=== PATIENT | male | born 1960 | race Caucasian/White ===

== ENCOUNTER 2019-01-11 18:04 | Emergency (ER) | payer BC, SELFPAY ==
[2019-01-11 18:06] VITALS: BP 149/94; PULSE 95; RESP 16; TEMP 36.8; O2SAT 98; BMI 21.2
[2019-01-11 20:21] VITALS: RESP 18
--- NOTE | 2019-01-11 21:14 | RAD_ITS ---
STUDY: X-RAY - ABDOMEN/PELVIS REASON FOR EXAM: Male, 58 years old. Abdominal pain TECHNIQUE: KUB COMPARISON: None. FINDINGS: Normal visualized lung bases. There is a moderate to large colonic fecal load. There is no demonstrated free abdominal air. The visualized liver, spleen and kidneys are grossly normal in size and morphology. Normal soft tissue structures. Normal visualized osseous structures. RAD/Abdomen Single View IMPRESSION: Moderate to large colonic fecal loading likely fecal impaction Electronically Signed: Marcus Allred, at 22:58 EDT Tel , Service support ,
[2019-01-11 21:16] LABS: Absolute Lymphocyte Count 2.22 X10^3/ul (0.83-4.51); Absolute Neutrophil Count 4.1 X10^3/uL (2.0-7.7); Basophil# 0.04 X10^3/uL; Basophil% 0.6 % (0-1); Eosinophils% 1.4 % (0-5); Hematocrit 44.7 % (40-54); Hemoglobin 15.7 g/dl (13.0-16.5); Lymphocyte # 2.22 X10^3/ul (4.0); Lymphocyte % 31.9 % (19-41); Mean Corp Hgb Conc 35.1 g/gl (32-36); Mean Corpuscular Hgb 33.4 pg (27.0-32.0); Mean Corpuscular Volume 95.1 fL (80-94); Mean Platelet Vol. 10.8 fl (6.2-12.0); Monocyte# 0.44 X10^3/uL; Monocyte% 6.3 % (0-10); Neutrophil # 4.13 X10^3/uL (2.7-7.7); Neutrophil % 59.5 % (47-70); Platelet Count 158 K/mm3 (150-450); RBC Distribution Width CV 12.7 % (11.6-14.6); RBC Distribution Width SD 44.2 fl (35.1-43.9)
[2019-01-11 21:19] LABS: POSITIVE COUNT NO; POSITIVE DIFFERENTIAL NO; POSITIVE MORPHOLOGY NO
[2019-01-11 21:39] LABS: AST(SGOT) 28 U/L (15-37); Alanine Aminotransfer ALT/SGPT 38 U/L (16-61); Albumin, Serum 3.9 g/dL (3.2-5.0); Alkaline Phosphatase 57 U/L (45-117); Anion Gap 7 (5-15); BUN 8 mg/dL (7-18); BUN/Creat Ratio 13.2 RATIO (10-20); Bilirubin, Direct 0.17 mg/dL (0.00-0.30); Calcium,Total 8.3 mg/dL (8.5-10.1); Chloride 107 mmol/L (98-107); EST Glomerular Filtration Rate 147 mL/min (>60); Est Glom Filt Rate - Afr Amer 177 mL/min (>60); Estimated Creatinine Clearance 119.95 ml/min; Glucose 82 mg/dL (74-106); Lipase 64 U/L (73-393); Potassium 3.6 mmol/L (3.5-5.1); Protein, Total 6.9 g/dL (6.4-8.2); Sodium Level 139 mmol/L (136-145)
[2019-01-11 22:04] VITALS: RESP 18
--- NOTE | 2019-01-11 22:16 | ED.VISSUMM ---
- ER Visit Summary Date of Service: 01/11/19 Chief Complaint: Left upper quadrant abdominal pain History of Present Illness: The patient is a 58 M history of skin lupus and high cholesterol and BPH. 2 prior hernia surgeries. Patient states it has been 2-3 weeks since his last bout a week or so ago. [place] to be diverticulitis started on Cipro and Flagyl. He never had any imaging at that time. He did follow-up had a CAT scan done at [place] [facility] which showed constipation. They have tried magnesium citrate and multiple other remedies without any relief. He has had no nausea or vomiting. No fever. No dysuria. Physical Examination: Well-appearing middle-age male. No acute distress. Vital signs are stable afebrile. HEENT exam unremarkable. Neck nontender no JVD. No lymphadenopathy. Lungs clear to auscultation bilaterally. Heart regular rhythm no murmur. Abdomen soft. Nondistended. Normal bowel sounds. No peritoneal signs. He does have tenderness in the left upper quadrant. There is no obvious hernia or masses. No pulsatile mass. No McBurney's point tenderness. No Flynn sign. No signs of obstruction. Positive bowel sounds. Patient is moving all 4 extremities. Back nontender. Neurologically is awake and alert with no focal motor deficits. Test Results: CBC normal. Chemistries normal. Liver enzymes normal. Lipase normal. KUB showed increased stool but otherwise no signs of obstruction. No dilated bowels. No air-fluid levels. No free air. Emergency Department Course and Treatment: Patient was offered GoLYTELY at home or soapsuds enema they preferred a soapsuds enema here. After soapsuds enema and a large bowel movement and is feeling much better on repeat exam at 2354. Comfortable with him being discharged home. Treatment Plan: Plenty of fruits and vegetables and fiber. Stool softener. Prune juice. Follow-up if not improving. Disposition: Discharge Impression: Abdominal pain secondary to constipation This note was generated with [employer] dictation software. It may contain incorrect words, spelling, and punctuation that were not noted in review of the chart prior to signing ED Disposition - Plan for ED Patient: Disposition: Home or Assisted Living Instructions: ED Constipation Referrals: Davi Rdz MD [Primary Care Provider] - 3-5 Days if not improving Additional Instructions: Plenty fluids and rest. Magnesium citrate as needed. Stool softener. Fruits, vegetables, fiber and prune juice. Follow up with your doctor if not improving.
--- NOTE | 2019-01-11 22:20 | ED.DEP ---
ED Disposition - Plan for ED Patient: Disposition: Home or Assisted Living Instructions: ED Constipation Referrals: Davi Rdz MD [Primary Care Provider] - 3-5 Days if not improving Additional Instructions: Plenty fluids and rest. Magnesium citrate as needed. Stool softener. Fruits, vegetables, fiber and prune juice. Follow up with your doctor if not improving.
[2019-01-12] VITALS: BP 132/75; PULSE 81; RESP 18; O2SAT 96
== END 2019-01-12 00:01 | disposition home or self-care (01) ==
PROVIDERS: Emergency Provider Emergency Medicine; Family Provider Family Medicine; PCP Family Medicine
DX: K59.00 Constipation, unspecified (principal); E78.00 Pure hypercholesterolemia, unspecified; N40.0 Benign prostatic hyperplasia without lower urinary tract symptoms; L93.0 Discoid lupus erythematosus; Z79.82 Long term (current) use of aspirin; Z79.899 Other long term (current) drug therapy; Z72.0 Tobacco use
CPT/HCPCS: 74018; 80048; 80076; 83690; 85025; 99285; A4216

== ENCOUNTER → 2022-10-31 | Outpatient (CLI) | payer BC, SELFPAY ==
--- NOTE | 2022-10-31 | IMM_PTH ---
PATIENT: ABHISHEK WESLEY LOC: [facility] U#:[id number] AGE/SX: 62/M ROOM: RE10/31/[address]: Dr. Scout Gomez MD : 1960 BED: DIS: 10/31/2022 SPEC #: [id number] RECD: 11/04/22 14:04 STATUS: NGOC REQ #: [id number] JOS: 10/31/22 00:[address]: Scout Gomez DEPT: IMMUNOHISTOCHEMISTRY RECD BY: Zakia Garcia ENTERED: 11/04/22 14:05 SP TYPE: IMMUNO OTHR DR: Dr. Davi Rdz MD Tissues: B - PROSTATE RIGHT D - PROSTATE LEFT E - PROSTATE LEFT F - PROSTATE LEFT Procedures: 34BE12 (add) P40 (add) 34BE12 (initial) PHYSICIAN & INSTITUTION [place] [id number] SPECIMEN INFORMATION: Tissue Source: B - Right mid, D - Left apex, E - Left mid, F - Left base Clinical Info: Elevated PSA Specimen Number: [id number] A, D, E & F CPT code: 02812, 56044 x7 METHODOLOGY: Deparaffinized sections of prefer/formalin-fixed tissue or PAP/DQ stained slides are incubated with monoclonal/polyclonal antibodies/oligonucleotide probes. Localization is made via biotin free immunoperoxidase method. Appropriate controls are performed and reacted as expected. Results on target cell population are indicated in the following table: RESULTS: ANTIBODY / CLONE RESULT Block B 34BE12 (34BE12) negative P40 (BC28) negative Block D 34BE12 (34BE12) negative P40 (BC28) negative Block E 34BE12 (34BE12) negative P40 (BC28) negative Block F 34BE12 (34BE12) negative P40 (BC28) negative These tests were developed and their performance characteristics determined by [facility]. They may not have been cleared or approved by the U.S. Food and Drug Administration. The FDA has determined that such clearance or approval is not necessary. The above immunohistochemical/dualISH markers are ordered and reviewed by the Pathologist. INTERPRETATION: B. Right prostate, mid, core biopsy: Adenocarcinoma. D. Left prostate, apex, core biopsy: Adenocarcinoma. E. Left prostate, mid, core biopsy: Adenocarcinoma. F. Left prostate, base, core biopsy: Adenocarcinoma. AM:joey 11/05/2022
--- NOTE | 2022-10-31 08:00 | PROSBIL_PTH ---
PATIENT: ABHISHEK WESLEY LOC: [facility] U#:[id number] AGE/SX: 62/M ROOM: RE10/31/[address]: Dr. Scout Gomez MD : 1960 BED: DIS: 10/31/2022 SPEC #: [id number] RECD: 11/01/22 11:35 STATUS: NGOC REQ #: [id number] JOS: 10/31/22 08:[address]: Scout Gomez DEPT: SURGICAL PATHOLOGY RECD BY: Jaja Pina ENTERED: 11/01/22 11:36 SP TYPE: PROST BX LIN DR: Dr. Davi Rdz MD Tissues: A - PROSTATE RIGHT B - PROSTATE RIGHT C - PROSTATE RIGHT D - PROSTATE LEFT E - PROSTATE LEFT F - PROSTATE LEFT Procedures: PROSTATE BX HEADER OPERATION: Prostate biopsy PRE-OP DIAGNOSIS: Elevated PSA TISSUE SUBMITTED: A - Right apex, B - Right mid, C - Right base, D - Left apex, E - Left mid, F - Left base MICROSCOPIC DIAGNOSIS A. Right prostate, apex, core biopsy: Mild chronic inflammation. Focal glandular atrophy. B. Right prostate, mid, core biopsy: Adenocarcinoma. [place] grade: 6 (3+3) Cores involved: 2 out of 2 cores Tissue involved: 10% Greatest tumor length: 1.5 millimeters See comment. C. Right prostate, base, core biopsy: Adenocarcinoma. [place] grade: 6 (3+3) Cores involved: 2 out of 2 cores Tissue involved: 50% Greatest tumor length: 3 millimeters D. Left prostate, apex, core biopsy: Adenocarcinoma. 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 See comment. E. Left prostate, mid, core biopsy: Adenocarcinoma. [place] grade: 6 (3+3) Cores involved: 1 out of 2 cores Tissue involved: 1% Greatest tumor length: 1.2 millimeters Other findings: High-grade prostatic intraepithelial neoplasia (HGPIN). See comment. F. Left prostate, base, core biopsy: Adenocarcinoma. [place] grade: 6 (3+3) Cores involved: 1 out of 2 cores Tissue involved: 1% Greatest tumor length: 1.0 millimeters Other findings: High-grade prostatic intraepithelial neoplasia (HGPIN). See comment. AM:joey 11/04/2022 COMMENT B, D, E & F - Immunohistochemistry ([id number]) supports the above diagnosis. Case has been reviewed in consultation with Dr. Guzman who concurs with the above diagnosis. IDC:[email or web address] MICROSCOPIC DESCRIPTION Slides are reviewed. GROSS DESCRIPTION A - Received is one container designated prostate, right apex. The specimen consists of two elongated fragments of light hernandez-white soft tissue each measuring 1.5 cm in length and 0.1 cm in diameter. The specimen is totally submitted in one cassette. B - Received is one container designated prostate, right mid. The specimen consists of two elongated fragments of light hernandez-white soft tissue measuring 0.3 and 0.5 cm in length and 0.1 cm in diameter. The specimen is totally submitted in one cassette. C - Received is one container designated prostate, right base. The specimen consists of one elongated fragment of light hernandez-white soft tissue measuring 0.7 cm in length and 0.1 cm in diameter. The specimen is totally submitted in one cassette. D - Received is one container designated prostate, left apex. The specimen consists of two elongated fragments of light hernandez-white soft tissue each measuring 1.5 cm in length and 0.1 cm in diameter. The specimen is totally submitted in one cassette. E - Received is one container designated prostate, left mid. The specimen consists of two elongated fragments of light hernandez-white soft tissue measuring 0.8 and 2 cm in length and 0.1 cm in diameter. The specimen is totally submitted in one cassette. F - Received is one container designated prostate, left base. The specimen consists of two elongated fragments of light hernandez-white soft tissue each measuring 2 cm in length and 0.1 cm in diameter. The specimen is totally submitted in one cassette. / SJ:rg 11/01/2022 TC:0 [facility]: [id number] x6
== END | disposition home or self-care (01) ==
LOC: LABSPEC 16:19
PROVIDERS: PCP Family Medicine; Visit Provider Urology
DX: C61 Malignant neoplasm of prostate (principal); R97.20 Elevated prostate specific antigen [PSA]
CPT/HCPCS: 88305; 88341; 88342; G0416